=== PATIENT | female | born 1980 | race Caucasian/White ===

== ENCOUNTER 2016-07-31 09:00 | Outpatient (CLI) | payer OTHER | END 2016-07-31 09:01 | disposition home or self-care (01) | DX: Z00.00 Encounter for general adult medical examination without abnormal findings (principal); E55.9 Vitamin D deficiency, unspecified; E78.5 Hyperlipidemia, unspecified ==

== ENCOUNTER 2021-01-02 14:18 | Emergency (ER) | payer MEDICAID, OTHER ==
--- NOTE | 2021-01-02 16:42 | ED Physician Documentation ---
History of Present Illness - Stated complaint Stated Complaint: NAUSEA,VOMITING,BODYACHES,SOA,DIARRHEA - Chief complaint Chief Complaint: General - History obtained from History obtained from: Patient - Additonal information Additional information: Patient comes emergency department with multiple complaints which she attributes to "COVID-19 symptoms". She states she is at various times over the last 2 weeks had a dry cough, fatigue, racing heart, diarrhea, temperature of 100.1, and body aches. Patient was fully vaccinated with the Pfizer vaccine in June and has not had any known Covid exposures. She states she hugged a nurse friend who takes care of Covid patients that [place] and she was not wearing an N95 mask. No other complaints at this time. She does note that she has been under a lot of stress from financial difficulties and also from PTSD counseling that she is going through, which has been taking up a lot of issues. Review of Systems Ten Systems: 10 systems reviewed and negative Constitutional: reports: Myalgias, Fatigue Eyes: reports: Reviewed and negative Ears: reports: Reviewed and negative Nose: reports: Reviewed and negative Throat: reports: Reviewed and negative Cardiac: reports: Palpitations Respiratory: reports: Cough GI: reports: Nausea, Diarrhea : reports: Reviewed and negative Skin: reports: Reviewed and negative Musculoskeletal: reports: Reviewed and negative Neurologic: reports: Reviewed and negative Psychiatric: reports: Anxiety Endocrine: reports: Reviewed and negative Immunocompromised: reports: Reviewed and negative PD PAST MEDICAL HISTORY - Allergies Allergies/Adverse Reactions: Allergies Allergy/AdvReac Type Severity Reaction Status Date / Time aspirin Allergy Emesis Verified 01/02/21 14:33 PD ED PE NORMAL - Vitals Vital signs reviewed: Yes - General General: Alert and oriented X 3, No acute distress, Well developed/nourished - HEENT HEENT: Atraumatic, PERRL, EOMI, Moist mucous membranes, Pharynx benign - Neck Neck: Supple, no meningeal sign - Cardiac Cardiac: RRR, No murmur, Strong equal pulses - Respiratory Respiratory: No respiratory distress, Clear bilaterally - Abdomen Abdomen: Soft, Non tender, Non distended - Derm Derm: Normal color, Warm and dry, No rash - Extremities Extremities: No deformity, No edema - Neuro Neuro: Alert and oriented X 3, epic interface analyst 2-12 intact, Normal speech - Psych Psych: Normal mood, Normal affect Results - Vitals Vitals: Vital Signs - 24 hr 01/02/21 14:33 Temperature 37.3 C Heart Rate 76 Respiratory 16 Rate Blood Pressure 126/76 O2 Saturation 98 Oxygen O2 Source Room air PD MEDICAL DECISION MAKING - ED course Complexity details: considered differential, d/w patient ED course: I discussed with the patient that her symptoms are very broad and nonspecific, and Though it is possible that Covid is causing her intermittent symptoms, she has also been vaccinated and has not had a clear progression of symptoms. As such, I will test her for Covid, but we have discussed that she should follow-up with her primary care physician for further evaluation if she is not feeling better in the week. Patient has also been advised that she should talk to her doctor about wearing an event monitor if she continues to have episodes of feeling like her heart is racing. We have discussed the usual indications for return. Departure - Departure Disposition: 01 Home, Self Care Clinical Impression: Cough, Sore throat, Palpitations Diarrhea Qualifiers: Diarrhea type: unspecified type Qualified Code(s): R19.7 - Diarrhea, unspecified Fatigue Qualifiers: Fatigue type: unspecified Qualified Code(s): R53.83 - Other fatigue Condition: Stable Instructions: ED Palpitations, COVID-19 [facility] Comments: Your symptoms are very broad and nonspecific, and could be caused by any variety of things. You may have a viral illness causing the symptoms, and you have been tested for Covid today. The test is pending and you need to self quarantine until the result is done and negative. The results should be done in 24 to 72 hours. We will call with a positive result, but the fastest way to get a negative result for confirmation is to go to the hospital website at [email or web address], click on the [facility]" tab and sign up for the patient portal. If any friends or family get sick and would like to have a Covid test done, but do not have signs or symptoms that would necessitate being hospitalized, we encourage testing through our coronavirus swabbing station. For this, call [phone] to schedule an appointment. Otherwise, you should follow with your primary care physician for further evaluation of your many symptoms.
[2021-01-02 17:05] VITALS: BP 107/61
== END 2021-01-02 17:19 | disposition home or self-care (01) ==
LOC: ED 14:18
DX: R05 Cough (principal); R00.2 Palpitations; R53.83 Other fatigue; Z20.822 Contact with and (suspected) exposure to COVID-19
CPT/HCPCS: 99283

== ENCOUNTER 2022-01-02 10:00 | Outpatient (CLI) | payer MEDICAID ==
--- NOTE | 2022-01-16 16:05 | Mammography Report ---
BILATERAL DIGITAL SCREENING MAMMOGRAM 3D/2D: 01/02/2022 CLINICAL: Routine screening. No prior exams were available for comparison. Both breasts are heterogeneously dense, which may obscure small masses (category c / 51-75% glandula r tissue). No significant masses, calcifications, or other findings are seen in either breast. IMPRESSION: NEGATIVE There is no mammographic evidence of malignancy. A 1 year screening mammogram is recommended. Based on the Tyrer Cuzick model (a risk assessment model) the patients lifetime risk is 14.1% and he r 10 year risk is 2.3%. According to the ACR, ACS, and NCCN guidelines, an annual breast MRI exam trisha ng with mammogram is recommended if the patients lifetime risk is 20% or greater. This exam was interpreted at Station ID: [id number]. NOTE: For mammograms, a report in lay terms will be sent to the patient. Approximately 15% of breast malignancies will not be visualized mammographically. In the management of a palpable breast mass, a negative mammogram must not discourage biopsy of a clinically suspicious lesion. Electronically Signed By: Marcel Lucia M.D., [email or web address]:01/16/2022 14:38:43 ACR BI-RADS Category 1: Negative 3341F PARENCHYMAL PATTERN: (D) - The breast(s) demonstrate(s) heterogeneously dense fibroglandular braxton trevino. BI-RADS CATEGORY: (1) - 1 RECOMMENDATION: (ANNUAL) - Recommend routine annual screening mammography. [id number] 1 year screening LATERALITY: (B)
== END 2022-01-02 10:01 | disposition home or self-care (01) ==
LOC: DI.S 10:00
DX: Z12.31 Encounter for screening mammogram for malignant neoplasm of breast (principal)

== ENCOUNTER 2023-03-07 14:18 | Outpatient (CLI) | payer MEDICAID ==
--- NOTE | 2023-03-08 10:06 | Mammography Report ---
BILATERAL DIGITAL SCREENING MAMMOGRAM 3D/2D: 03/07/2023 CLINICAL: Routine screening. Comparison is made to exam dated: 01/02/2022 mammogram - [facility]. Both breasts are heterogeneously dense, which may obscure small masses (category c / 51-75% glandular tissue). No significant masses, calcifications, or other findings are seen in either breast. There has been no significant interval change. IMPRESSION: NEGATIVE There is no mammographic evidence of malignancy. A 1 year screening mammogram is recommended. Based on the Tyrer Cuzick model (a risk assessment model) the patients lifetime risk is 14.1% and he r 10 year risk is 2.4%. According to the ACR, ACS, and NCCN guidelines, an annual breast MRI exam trisha ng with mammogram is recommended if the patients lifetime risk is 20% or greater. This exam was interpreted at Station ID: [id number]. NOTE: For mammograms, a report in lay terms will be sent to the patient. Approximately 15% of breast malignancies will not be visualized mammographically. In the management of a palpable breast mass, a negative mammogram must not discourage biopsy of a clinically suspicious lesion. Electronically Signed By: Terry Ross M.D. [email or web address]:03/08/2023 09:15:53 letter sent: No_Letter ACR BI-RADS Category 1: Negative 3341F PARENCHYMAL PATTERN: (D) - The breast(s) demonstrate(s) heterogeneously dense fibroglandular parsukumar trevino. BI-RADS CATEGORY: (1) - 1 Mammogram [id number] 1 year screening LATERALITY: (B)
== END 2023-03-07 14:19 | disposition home or self-care (01) ==
LOC: DI.S 14:18
PROVIDERS: ATTEND Family Medicine
DX: Z12.31 Encounter for screening mammogram for malignant neoplasm of breast (principal); R92.333 Mammographic heterogeneous density, bilateral breasts

== ENCOUNTER 2023-08-07 10:04 | Outpatient (CLI) | payer MEDICAID | END 2023-08-07 10:05 | disposition home or self-care (01) | LOC: LAB.S 10:04 | PROVIDERS: ATTEND Nurse Practitioner Family | DX: G25.81 Restless legs syndrome (principal); E83.10 Disorder of iron metabolism, unspecified | CPT/HCPCS: 36415; 82728; 83540; 84466 ==

== ENCOUNTER 2023-08-10 19:09 | Emergency (ER) | payer MEDICAID ==
[2023-08-10 19:30] VITALS: BP 130/84; O2SAT 99
--- NOTE | 2023-08-10 20:00 | ED Physician Documentation ---
History of Present Illness - Stated complaint Stated Complaint: GLF/DIZZY/NAUSEA - Chief complaint Chief Complaint: Trauma Hd/Nk - Additonal information Additional information: 42-year-old female presents emergency department with her service dog who is barking and growling at myself after tripping and falling over his leash because he was pulling to noel chickens. Patient denies any loss of consciousness but does report that he child saw her fall and hit the back of her head and said that she laid there for a moment of time and she said that she did not know if this meant she lost consciousness or not. She originally went to urgent care and urgent care sent her to the emergency department via ambulance for further evaluation. She endorses and mild dizziness and confusion and neck pain. No seizure-like activity no nausea or vomiting. PD PAST MEDICAL HISTORY - Past Medical History Past Medical History: No Cardiovascular: None Respiratory: None Endocrine/Autoimmune: None GI: None ENGINEER OF SYSTEM DEVELOPMENT: None : None HEENT: None Psych: None Musculoskeletal: None Derm: None - Past Surgical History Past Surgical History: No - Present Medications Home Medications: Ambulatory Orders Medication Instructions Recorded Confirmed Cyclobenzaprine [Flexeril] 10 mg PO TID PRN 3 Days #9 tablet 08/10/23 - Allergies Allergies/Adverse Reactions: Allergies Allergy/AdvReac Type Severity Reaction Status Date / Time aspirin Allergy Emesis Verified 01/02/21 14:33 - Social History Does the pt smoke?: No Smoking Status: Never smoker Does the pt drink ETOH?: No Does the pt have substance abuse?: No - Immunizations Immunizations are current?: Yes - POLST Patient has POLST: No PD ED PE NORMAL - Vitals Vital signs reviewed: Yes - General General: Alert and oriented X 3, No acute distress, Well developed/nourished - HEENT HEENT: Atraumatic, PERRL, EOMI - Neck Neck: No bony TTP, C-Spine cleared by NEXUS criteria - Cardiac Cardiac: RRR, No murmur - Respiratory Respiratory: No respiratory distress, Clear bilaterally - Abdomen Abdomen: Normal bowel sounds, Non tender - Neuro Neuro: Alert and oriented X 3, cognos consultant 2-12 intact, No motor deficit, No sensory deficit, Normal speech Eye Opening: Spontaneous Motor: Obeys Commands Verbal: Oriented GCS Score: 15 Results - Vitals Vitals: Vital Signs - 24 hr 08/10/23 19:16 Temperature 36.5 C Heart Rate 50 L Respiratory 16 Rate Blood Pressure 130/84 H O2 Saturation 99 Oxygen O2 Source Room air - Labs Labs: Laboratory Tests 08/10/23 08/10/23 20:16 20:16 WBC 5.4 RBC 4.38 Hgb 12.7 Hct 39.3 MCV 89.7 MCH 29.0 MCHC 32.3 RDW 12.5 Plt Count 224 MPV 10.0 Neut # (Auto) 3.3 Lymph # (Auto) 1.6 [place] # (Auto) 0.5 Eos # (Auto) 0.1 Baso # (Auto) 0.0 Absolute Nucleated RBC 0.00 Nucleated RBC % 0.0 Sodium 138 Potassium 3.8 Chloride 106 Carbon Dioxide 27 Anion Gap 5.0 L BUN 15 Creatinine 0.7 Estimated GFR (MDRD) 91 Glucose 98 Calcium 9.8 Magnesium 1.8 Total Bilirubin 0.3 AST 13 ALT 14 Alkaline Phosphatase 86 Total Protein 6.9 Albumin 4.2 Globulin 2.7 Albumin/Globulin Ratio 1.6 Lipase 43 - Rads (name of study) Head CT without Relevant Findings:: Final report received, EMP independent interpretation of test, Other (No acute intracranial abnormalities or findings) Cervical spine without Relevant Findings:: Final report received, EMP independent interpretation of test, Other (No acute displaced fracture or traumatic subluxation) PD Medical Decision Making - ED course ED course: 42-year-old female presents emergency department for concerns of head injury and neck injury. Patient was walking her service dog who is apparently a service dog trained despite barking and growling at myself and chasing chickens to the point where patient was pulled down fell onto her side and is worried because some because of the park said that she might of lost consciousness but patient does not report any loss of consciousness. A CT was complete for further evaluation which is not found to have any intracranial hemorrhages or abnormalities. CT cervical was also complete no subluxation or acute fractures. Patient was given a muscle relaxer for her neck stiffness here in the emergency department as well as Tylenol ibuprofen. She is told to follow-up with her primary care provider for possible physical therapy referral given ER return precautions. All questions answered safe for discharge. Departure - Departure Disposition: 01 Home, Self Care Clinical Impression: Ground-level fall Instructions: Cervical Strain, Neck Clock Prescriptions: Cyclobenzaprine [Flexeril] 10 mg PO TID PRN 3 Days #9 tablet PRN Reason: Spasms Comments: Thank you for trusting us with your care we have completed a CT of your neck and head and we are not seeing any acute abnormalities or findings at this point in time. Please help with your primary care provider and let them know about today's ER visit. You can take 1000 mg of Tylenol every 8 hours as needed for pain and 600 mg of ibuprofen every 6 hours as needed for pain. We are also sending you home on a short course of muscle relaxers called Flexeril you can take 1 pill every 8 hours as needed for pain do not drive or operate heavy machinery while taking these medications. You can also apply ice 20 minutes at a time to your neck for any stiffness and soreness that you are experiencing. Forms: PCP List Discharge Date/Time: 08/10/23 22:09
[2023-08-10 20:19] LABS: BASOPHILS % (AUTO) 0.6 %; EOSINOPHILS # (AUTO) 0.1 10^3/uL (0.0-0.7); EOSINOPHILS % (AUTO) 1.5 %; HCT - HEMATOCRIT 39.3 % (37.0-47.0); HGB - HEMOGLOBIN 12.7 g/dL (12.0-16.0); LYMPHOCYTES # (AUTO) 1.6 10^3/uL (1.5-3.5); LYMPHOCYTES % (AUTO) 29.1 %; MEAN CORPUSCULAR HGB CONC 32.3 g/dL (32.0-36.0); MEAN CORPUSCULAR VOLUME 89.7 fL (81.0-99.0); MONOCYTES # (AUTO) 0.5 10^3/uL (0.0-1.0); MONOCYTES % (AUTO) 8.7 %; NEUTROPHILS # (AUTO) 3.3 10^3/uL (1.5-6.6); NEUTROPHILS % (AUTO) 59.7 %; PLT - PLATELET COUNT 224 10^3/uL (130-450); RED BLOOD COUNT 4.38 10^6/uL (4.20-5.40); RED CELL DISTRIBUTION WIDTH 12.5 % (12.0-15.0); WHITE BLOOD COUNT 5.4 x10^3/uL (4.8-10.8)
[2023-08-10 20:27] LABS: MAGNESIUM 1.8 mg/dL (1.7-2.3)
[2023-08-10 20:33] LABS: ALBUMIN 4.2 g/dL (3.2-5.5); ALBUMIN/GLOBULIN RATIO 1.6 (1.0-2.2); BILIRUBIN,TOTAL 0.3 mg/dL (0.2-1.0); CALCIUM 9.8 mg/dL (8.5-10.3); CREATININE 0.7 mg/dL (0.6-1.3); POTASSIUM 3.8 mmol/L (3.5-4.5); TOTAL PROTEIN 6.9 g/dL (6.4-8.9)
[2023-08-10] MEDS: ACETAMINOPHEN 325 MG TABLET PO STA (21:14)
[2023-08-10] MEDS: IBUPROFEN 600 MG TABLET PO STA (21:14)
--- NOTE | 2023-08-10 21:30 | CT Report ---
PROCEDURE: Head WO INDICATIONS: GLF TECHNIQUE: Noncontrast 4.5 mm thick angled axial sections acquired from the foramen magnum to the vertex. For r adiation dose reduction, the following was used: automated exposure control, adjustment of mA and/or kV according to patient size. COMPARISON: None. FINDINGS: Image quality: Excellent. CSF spaces: Basal cisterns are patent. No extra-axial fluid collections. Ventricles are normal in size and shape. Brain: No midline shift. No intracranial masses or hemorrhage. Parra-white matter interface is norm al. Skull and face: Calvarium and visualized facial bones are intact, without suspicious lesions. Sinuses: Visualized sinuses and mastoids are clear. IMPRESSION: No acute intracranial pathology. Reviewed by: Jeff Garcia MD on 08/10/2023 9:29 PM PDT Approved by: Jeff Garcia MD on 08/10/2023 9:29 PM PDT Station ID: [id number]
--- NOTE | 2023-08-10 21:31 | CT Report ---
PROCEDURE: Cervical Spine WO INDICATIONS: GLF TECHNIQUE: Noncontrast 3 mm thick sections acquired from the skull base to the T4 level. Sagittal and coronal r eformats were then constructed. For radiation dose reduction, the following was used: automated exp osure control, adjustment of mA and/or kV according to patient size. COMPARISON: None. FINDINGS: Image quality: Excellent. Bones: No fractures or dislocations. Visualized superior ribs are intact. Soft tissues: Prevertebral soft tissues are normal in thickness. No paravertebral hematomas. No ap ical pneumothoraces. IMPRESSION: No acute, displaced fracture or traumatic subluxation. Reviewed by: Jeff Tabares MD on 08/10/2023 9:30 PM PDT Approved by: Jeff Tabares MD on 08/10/2023 9:30 PM PDT Station ID: [id number]
[2023-08-10] MEDS: CYCLOBENZAPRINE 10 MG TABLET PO STA (22:01)
== END 2023-08-10 22:09 | disposition home or self-care (01) ==
LOC: EDUNIT# → ED 19:09
DX: S09.90XA Unspecified injury of head, initial encounter (principal); S19.9XXA Unspecified injury of neck, initial encounter; W18.31XA Fall on same level due to stepping on an object, initial encounter; Y93.K1 Activity, walking an animal; Y92.830 Public park as the place of occurrence of the external cause
CPT/HCPCS: 36415; 70450; 72125; 80053; 83690; 83735; 85025; 99284; A9270

== ENCOUNTER 2023-09-06 07:18 | Outpatient (CLI) | payer MEDICAID ==
[2023-09-06 15:45] LABS: % IRON SATURATION 16 % (20-50); CHOL/HDL RATIO 3.8 (<4.4); CHOLESTEROL 167 mg/dL; HDL CHOLESTEROL 44 mg/dL; IRON 50 ug/dL (50-212); LDL CHOLESTEROL,CALCULATED 112 mg/dL; LDL/HDL RATIO 2.5 (<4.4); TOTAL IRON BINDING CAPACITY 316 ug/dL (250-450); TRANSFERRIN 226 mg/dL (203-362); TRIGLYCERIDES 57 mg/dL (48-352); VLDL CHOLESTEROL 11 mg/dL
[2023-09-06 15:56] LABS: FERRITIN 36.8 ng/mL (11.0-306.8)
== END 2023-09-06 07:19 | disposition home or self-care (01) ==
LOC: LAB.S 07:18
PROVIDERS: ATTEND Nurse Practitioner Family
DX: D50.8 Other iron deficiency anemias (principal); H02.60 Xanthelasma of unspecified eye, unspecified eyelid
CPT/HCPCS: 36415; 80061; 82728; 83540; 83721; 84466

== ENCOUNTER 2023-10-09 08:00 | Outpatient (CLI) | payer MEDICAID ==
[2023-10-09 20:13] LABS: BILIRUBIN,URINE NEGATIVE (NEGATIVE); GLUCOSE, URINE (UA) NEGATIVE (NEGATIVE); KETONES,URINE (UA) TRACE mg/dL (NEGATIVE); LEUKOCYTE ESTERASE, URINE NEGATIVE (NEGATIVE); NITRITE,URINE NEGATIVE (NEGATIVE); OCCULT BLOOD,URINE NEGATIVE (NEGATIVE); PH,URINE 5.5 PH (5.0-7.5); PROTEIN,URINE NEGATIVE (NEGATIVE); UROBILINOGEN,URINE 0.2 (NORMAL) E.U./dL (NORMAL)
[2023-10-09 20:18] LABS: CLARITY,URINE CLOUDY (CLEAR)
[2023-10-09 20:22] LABS: AMORPHOUS SEDIMENT,UR Marked /LPF; BACTERIA,URINE None Seen /HPF (None Seen); CRYSTALS,URINE 3-5 Calcium Oxalate /LPF; RBC,URINE None Seen /HPF (0-5); SQUAMOUS EPITHELIAL CELL,UR RARE Squamous (<= Few); WBC,URINE 0-3 /HPF (0-5)
[2023-10-10 17:22] LABS: BACTERIAL VAGINOSIS DNA NEGATIVE (NEGATIVE); CANDIDA GLABRATA DNA NEGATIVE (NEGATIVE); CANDIDA GROUP DNA POSITIVE (NEGATIVE); CANDIDA KRUSEI DNA NEGATIVE (NEGATIVE); TRICHOMONAS VAGINALIS DNA NEGATIVE (NEGATIVE)
[2023-10-10 20:21] LABS: CHLAMYDIA TRACHOMATIS DNA NEGATIVE (NEGATIVE); NEISSERIA GONORRHOEAE DNA NEGATIVE (NEGATIVE)
== END 2023-10-09 23:59 | disposition home or self-care (01) ==
LOC: LAB.S 08:00
PROVIDERS: ATTEND Emergency Medicine
DX: R30.0 Dysuria (principal)
CPT/HCPCS: 81001; 81514; 87086; 87491; 87591; 87661; 87801

== ENCOUNTER 2023-10-20 08:00 | Outpatient (CLI) | payer MEDICAID | END 2023-10-20 23:59 | disposition home or self-care (01) | LOC: LAB 08:00 | PROVIDERS: ATTEND Physician Assistant | DX: J02.9 Acute pharyngitis, unspecified (principal) | CPT/HCPCS: 81599; 87491; 87591 ==

== ENCOUNTER 2024-01-11 12:55 | Outpatient (CLI) | payer MEDICAID ==
--- NOTE | 2024-01-11 13:53 | MRI Report ---
Lumbar Spine WO Clinical History: 43 years of age, Female, LOW BACK PAIN. Comparison: No priors available Technique: Multiplanar multisequence lumbar spine MRI without contrast was performed. Findings: Prior surgery: None. Vertebral bodies: Vertebral body heights are maintained. Alignment: Mild straightening of the lumbar spine. Grade 1 anterolisthesis of L4 on L5. Bone marrow: Unremarkable for age. Intervertebral discs: Multilevel disc bulge and disc desiccation. The conus medullaris is normal in contour, signal intensity, and location. The tip of the conus is at T12-L1. The following axial levels are detailed below: T12-L1: No central canal stenosis. No right neuroforaminal stenosis. No left neuroforaminal stenosis. L1-L2: No central canal stenosis. No right neuroforaminal stenosis. No left neuroforaminal stenosis. L2-L3: No central canal stenosis. No right neuroforaminal stenosis. No left neuroforaminal stenosis. L3-L4: Mild bilateral facet arthropathy. No central calcinosis. No right neuroforaminal stenosis. No left neuroforaminal stenosis. L4-L5: Disc bulge. Moderate bilateral facet arthropathy with fluid in bilateral facet. Moderate centr al canal stenosis. Mild right neuroforaminal stenosis. Mild left neuroforaminal stenosis. L5-S1: Mild bilateral facet arthropathy. No central canal stenosis. No right neuroforaminal stenosis. No left neuroforaminal stenosis. Visualized sacrum and pelvis: Visualized sacrum is intact. No abdominal aortic aneurysm. IMPRESSION: Multilevel degenerative changes of the lumbar spine, most pronounced at L4-5, where there is moderate central canal stenosis and mild bilateral neuroforaminal stenosis. Reviewed by: Lavinia Drake MD on 01/11/2024 1:52 PM PDT Approved by: Lavinia Drake MD on 01/11/2024 1:52 PM PDT Station ID: [id number]
== END 2024-01-11 12:56 | disposition home or self-care (01) ==
LOC: DI 12:55
PROVIDERS: ATTEND Family Medicine
DX: M51.36 Other intervertebral disc degeneration, lumbar region (principal); M48.061 Spinal stenosis, lumbar region without neurogenic claudication; M47.816 Spondylosis without myelopathy or radiculopathy, lumbar region; M47.817 Spondylosis without myelopathy or radiculopathy, lumbosacral region

== ENCOUNTER 2024-01-18 07:47 | Outpatient (CLI) | payer MEDICAID ==
[2024-01-18 15:52] LABS: FERRITIN 37.5 ng/mL (11.0-306.8)
[2024-01-18 15:54] LABS: % IRON SATURATION 20 % (20-50); CHOLESTEROL 190 mg/dL; HDL CHOLESTEROL 47 mg/dL; IRON 63 ug/dL (50-212); LDL CHOLESTEROL,CALCULATED 127 mg/dL; LDL/HDL RATIO 2.7 (<4.4); TOTAL IRON BINDING CAPACITY 311 ug/dL (250-450); TRANSFERRIN 222 mg/dL (203-362); TRIGLYCERIDES 81 mg/dL; VLDL CHOLESTEROL 16 mg/dL
== END 2024-01-18 07:48 | disposition home or self-care (01) ==
LOC: LAB.S 07:47
PROVIDERS: ATTEND Nurse Practitioner Family
DX: D50.8 Other iron deficiency anemias (principal); H02.60 Xanthelasma of unspecified eye, unspecified eyelid
CPT/HCPCS: 36415; 80061; 82728; 83540; 83721; 84466